=== PATIENT | female | born 1985 | race Caucasian/White ===

== ENCOUNTER 2022-02-20 08:42 | Outpatient (CLI) | payer BC ==
[2022-02-20] MEDS ORDERED: Iopamidol 300 61% 100 ML VIAL FS ONE (09:23)
== END 2022-02-20 08:43 | disposition home or self-care (01) ==
LOC: CSHCT 08:42
PROVIDERS: ATTEND Internal Medicine Gastroenterology
DX: K21.9 Gastro-esophageal reflux disease without esophagitis (principal); R10.13 Epigastric pain; R16.1 Splenomegaly, not elsewhere classified; N13.2 Hydronephrosis with renal and ureteral calculous obstruction; R16.2 Hepatomegaly with splenomegaly, not elsewhere classified
CPT/HCPCS: 74160; Q9967

== ENCOUNTER 2022-04-05 20:07 | Emergency (ER) | payer BC ==
[~2022-04-05 20:07] MED LIST: Iopamidol 300 61% 100 ML VIAL FS ONE
[2022-04-05 21:29] LABS: #Basophils 0.1 10x3/uL (0.0-0.2); #Eosinphils 0.2 10x3/uL (0.0-0.5); #Monocytes 1.5 10x3/uL (0.0-1.1); #Neutrophils 7.6 10x3/uL (1.5-8.4); %Basophils 0.8 % (0.0-2.0); %Eosinophils 1.4 % (0.0-6.0); %Lymphocytes 32.4 % (18.0-47.0); %Monocytes 10.5 % (0.0-10.0); %Neutrophils 54.4 % (40.0-75.0); Hemoglobin 13.3 g/dL (12.0-15.5); Mean Corpuscular HGB CONC 34.2 g/dL (32.0-36.0); Mean Corpuscular Hemoglobin 30.8 pg (27.0-33.0); Mean Platelet Volume 8.9 fl (7.4-10.4); Platelet Count 823 10x3/uL (150-450); Red Blood Cell (RBC) Count 4.32 10x6/uL (3.90-5.03)
[2022-04-05 21:36] LABS: PTT 25.6 sec (22.0-33.0); Prothrombin Time 10.6 sec (9.5-12.1)
[2022-04-05 21:41] LABS: ALT (SGPT) 14 U/L (8-55); AST (SGOT) 11 U/L (5-34); Albumin 4.4 g/dL (3.5-5.0); Alkaline Phosphatase 95 U/L (40-110); Anion Gap 14 mmol/L (10-20); BUN (Urea Nitrogen) 11 mg/dL (7.0-18.7); Bilirubin, Total 0.7 mg/dL (0.2-1.2); Calc. Creatinine Clearance 0 mL/min (70-130); Calcium 9.5 mg/dL (7.8-10.44); Carbon Dioxide 24 mmol/L (22-29); Chloride 107 mmol/L (98-107); Estimated GFR 112; Glucose 83 mg/dL (70-105); Potassium 3.6 mmol/L (3.5-5.1); Protein, Total 7.4 g/dL (6.0-8.3); Sodium 141 mmol/L (136-145)
[2022-04-05 21:52] LABS: Hypochromia SLIGHT = 6-15 cells (100X) (0-5/hpf); Platelet Morphology Comment Appears Increased
[2022-04-05] MEDS ORDERED: Ketorolac Tromethamine 30 MG/ML VIAL ONE (22:41)
[2022-04-05 23:04] LABS: Bilirubin Neg (Negative); Blood, Urine 25 (Negative); Glucose, Urine (Dipstick) Normal (Negative); Ketone, Urine Negative (Negative); Leukocyte 25 (Negative); Nitrite Negative (Negative); Protein, Urine (Dipstick) 15 mg/dl (Neg-Trace); Specific Gravity, Urine 1.015 (1.005-1.030); Urobilinogen Normal mg/dL (Less than 2)
[2022-04-05 23:05] LABS: Clarity Hazy (Clear)
[2022-04-05 23:10] LABS: Bacteria/HPF Rare-Few HPF (None Seen)
[2022-04-05] MEDS ORDERED: traMADol HCl 50 MG TAB ONE (23:14)
== END 2022-04-05 23:19 | disposition home or self-care (01) ==
LOC: CSHERS 20:07
DX: N13.2 Hydronephrosis with renal and ureteral calculous obstruction (principal)
CPT/HCPCS: 71260; 74177; 80053; 81003; 81015; 85025; 85610; 85730; 87077; 87086; 87186; 96374; J1885; Q9967

== ENCOUNTER 2022-05-17 18:33 | Emergency (ER) | payer BC ==
[2022-05-17] MEDS ORDERED: Morphine 4 MG/ML VIAL ONE (19:14)
[2022-05-17] MEDS ORDERED: Ketorolac Tromethamine 30 MG/ML VIAL ONE (19:14)
[2022-05-17 19:22] LABS: Hemoglobin 11.4 g/dL (12.0-15.5); Mean Corpuscular HGB CONC 32.9 g/dL (32.0-36.0); Mean Corpuscular Hemoglobin 30.2 pg (27.0-33.0); Mean Corpuscular Volume 91.8 fl (81.6-98.3); Mean Platelet Volume 9.9 fl (7.4-10.4); Platelet Count 528 10x3/uL (150-450); RBC Distribution Width 14.4 % (11.5-14.5); Red Blood Cell (RBC) Count 3.78 10x6/uL (3.90-5.03); White Blood Cell (WBC) Count 16.9 10x3/uL (3.5-10.5)
[2022-05-17 19:27] LABS: MDiff Complete? YES; Manual Diff?? YES
[2022-05-17 19:31] LABS: ALT (SGPT) 34 U/L (8-55); AST (SGOT) 20 U/L (5-34); Alkaline Phosphatase 110 U/L (40-110); Anion Gap 17 mmol/L (10-20); BUN (Urea Nitrogen) 10 mg/dL (7.0-18.7); Bilirubin, Total 0.3 mg/dL (0.2-1.2); Calc. Creatinine Clearance 0 mL/min (70-130); Calcium 9.1 mg/dL (7.8-10.44); Carbon Dioxide 22 mmol/L (22-29); Chloride 104 mmol/L (98-107); Estimated GFR 97; Globulin 3.1 g/dL (2.4-3.5); Glucose 143 mg/dL (70-105); Potassium 3.5 mmol/L (3.5-5.1); Protein, Total 7.1 g/dL (6.0-8.3); Sodium 139 mmol/L (136-145)
[2022-05-17 19:43] LABS: Bilirubin Neg (Negative); Blood, Urine 25 (Negative); Clarity Cloudy (Clear); Glucose, Urine (Dipstick) Normal (Negative); Ketone, Urine Negative (Negative); Leukocyte 100 (Negative); Nitrite Negative (Negative); Protein, Urine (Dipstick) 30 mg/dl (Neg-Trace); Urobilinogen Normal mg/dL (Less than 2)
[2022-05-17 19:49] LABS: RBC/HPF 0-3 HPF (0-3)
[2022-05-17 19:50] LABS: Bacteria/HPF 1+ HPF (None Seen); Mucous/LPF 1+ LPF (<2+); Yeast-Budding 1+ HPF (None Seen)
[2022-05-17 19:54] LABS: Band 14 % (5-11); Lymphocytes 9 % (21-51); Monocytes 8 % (0-10); Neutrophil 68 % (42-75); Reactive Lymphocytes 1 % (0-10)
[2022-05-17 19:55] LABS: Anisocytosis SLIGHT = 6-15 cells (100X) (0-5/hpf); Elliptocytes SLIGHT = 2-5 cells (100X) (0-1/hpf); Macrocytosis SLIGHT = 6-15 cells (100X) (0-5/hpf); Microcytosis SLIGHT = 6-15 cells (100X) (0-5/hpf); Platelet Morphology Comment Appears Increased; Polychromasia SLIGHT = 2-3 cells (100X) (0-2/hpf)
[2022-05-17] MEDS ORDERED: cefTRIAXone\\ROCEPHIN 1 GM VIAL ONE (20:20)
[2022-05-17] MEDS ORDERED: Vancomycin 1 GM VIAL ONE (20:44)
[2022-05-17 21:48] LABS: SARS-CoV-2 NAA Rapid Test Not Detected (NotDetected)
[2022-05-17 22:07] LABS: Lactic Acid 0.7 mmol/L (0.5-2.2)
== END 2022-05-17 23:18 | disposition short-term general hospital (02) ==
LOC: CSHERS 18:33
DX: A41.9 Sepsis, unspecified organism (principal); N10 Acute pyelonephritis; R50.9 Fever, unspecified; D72.829 Elevated white blood cell count, unspecified; Z20.822 Contact with and (suspected) exposure to COVID-19
CPT/HCPCS: 36415; 74176; 80053; 81003; 81015; 83605; 85025; 87040; 87086; 96361; 96365; 96366; 96367; 96375; J0696; J1885; J2270; J3370; U0002